=== PATIENT | male | born 1955 | race Caucasian/White ===

== ENCOUNTER → 2021-09-03 | Day surgery (SDC) | payer OTHER ==
[2021-09-03 10:48] VITALS: BP 136/84
== END | disposition home or self-care (01) ==
LOC: SURG 10:36
PROVIDERS: ATTEND Anesthesiology
DX: M51.36 Other intervertebral disc degeneration, lumbar region (principal); M47.26 Other spondylosis with radiculopathy, lumbar region; M46.1 Sacroiliitis, not elsewhere classified; I10 Essential (primary) hypertension; K21.9 Gastro-esophageal reflux disease without esophagitis; Z98.890 Other specified postprocedural states; Z88.0 Allergy status to penicillin; Z79.899 Other long term (current) drug therapy
CPT/HCPCS: 99213; G0463

== ENCOUNTER → 2021-09-16 | Day surgery (SDC) | payer OTHER ==
[~2021-09-16] MED LIST: 0.9 % SODIUM CHLORIDE 10 ML VIAL. ONE; DEXAMETHASONE SOD PHOS 10 MG/ML VIAL. ONE; IOHEXOL 300 MG/ML 50 ML VIAL. ONE; LIDOCAINE 1% PF 30 ML VIAL. ONE
[2021-09-16 12:20] VITALS: BP 134/82
== END | disposition home or self-care (01) ==
LOC: SURG 11:28
PROVIDERS: ATTEND Anesthesiology
DX: M47.26 Other spondylosis with radiculopathy, lumbar region (principal); I10 Essential (primary) hypertension; K21.9 Gastro-esophageal reflux disease without esophagitis; M51.36 Other intervertebral disc degeneration, lumbar region; M46.1 Sacroiliitis, not elsewhere classified; Z98.890 Other specified postprocedural states; Z79.899 Other long term (current) drug therapy
CPT/HCPCS: 62323; A4209; A4657; A4930; J1100; Q9967